=== PATIENT | female | born 1985 | race Caucasian/White ===

== ENCOUNTER 2020-05-27 23:01 | Emergency (ER) | payer MEDICAID ==
[~2020-05-27] VITALS: Ht 157.5 cm; Wt 94.8 kg
[2020-05-27 23:09] VITALS: Ht 157.5 cm; Wt 94.8 kg
[2020-05-27] MEDS ORDERED: CEPHALEXIN500 MG PO (23:58)
[2020-05-28 00:06] VITALS: BP 141/85
== END 2020-05-28 00:06 | disposition home or self-care (01) ==
LOC: ED 23:01
DX: L02.811 Cutaneous abscess of head [any part, except face] (principal)